=== PATIENT | female | born 1995 | race Caucasian/White ===

== ENCOUNTER 2016-09-15 14:11 | Emergency (ER) | payer MEDICAID, OTHER ==
[~2016-09-15] VITALS: Ht 154.9 cm; Wt 56.0 kg
[2016-09-15] MEDS ORDERED: SODIUM CHLORIDE 0.9% 1,000 ML IV ONE (15:57)
[2016-09-15] MEDS ORDERED: ACETAMINOPHEN 500MG TABLET PO ONE (16:00)
[2016-09-15 16:29] LABS: CLARITY URINE CLEAR (CLEAR); COLOR URINE YELLOW (YELLOW); GLUCOSE URINE NEGATIVE (NEGATIVE); KETONES URINE NEGATIVE (NEGATIVE); LEUKOCYTE ESTERASE URINE NEGATIVE (NEGATIVE); NITRITE URINE NEGATIVE (NEGATIVE); OCCULT BLOOD URINE NEGATIVE (NEGATIVE); PROTEIN URINE NEGATIVE (NEGATIVE); SPECIFIC GRAVITY URINE 1.004 (1.005-1.030); UROBILINOGEN URINE 0.2 E.U./dL (0.2-1.0)
[2016-09-15 16:40] LABS: HEMATOCRIT. 41.4 % (36.0-48.0); HEMOGLOBIN. 13.5 g/dL (12.0-16.0); MEAN CORPUSCULAR HEMOGLOBIN 29.5 pg (28.0-32.0); MEAN CORPUSCULAR HGB CONC 32.6 g/dL (31.0-37.0); MEAN CORPUSCULAR VOLUME 90.4 fL (81.0-99.0); MEAN PLATELET VOLUME 11.2 fl (7.4-10.4); PLATELET 186 x1000/uL (130-400); RED BLOOD CELL COUNT 4.58 mill/uL (4.2-5.4); RED CELL DISTRIBUTION WIDTH 13.4 % (11.6-14.6); WHITE BLOOD COUNT 10.6 x1000/uL (4.5-11.0)
[2016-09-15 16:43] LABS: DIFFERENTIAL COMMENT 1
[2016-09-15 16:50] LABS: ANION GAP 13; CALCIUM 9.6 mg/dL (8.5-10.1); CARBON DIOXIDE 26 mEq/L (21-32); CHLORIDE 104 mEq/L (98-107); INDEX HEMOLYSI 4 (1-3); INDEX ICTERIC 1 (1-4); INDEX LIPEMIC 1 (1-3); UREA NITROGEN BLOOD 7 mg/dL (7-21); eGFR > 60 mL/min (>60)
[2016-09-15 17:05] LABS: PLATELET ESTIMATE NORMAL
[2016-09-15 17:06] LABS: HYPOCHROMASIA 1+
[2016-09-15 17:30] VITALS: BP 118/68
== END 2016-09-15 18:10 | disposition home or self-care (01) ==
LOC: ER 14:12
DX: N39.0 Urinary tract infection, site not specified (principal); R19.7 Diarrhea, unspecified
CPT/HCPCS: 36415; 80048; 81003; 81025; 85025; 96360; 99284; J7030; Z7610

== ENCOUNTER 2017-09-23 13:31 | Observation (INO) | payer MEDICAID, OTHER ==
[~2017-09-23] VITALS: Ht 157.5 cm; Wt 76.2 kg
[2017-09-23] MEDS ORDERED: PNV1TABL76 PO (14:51)
[2017-09-23] MEDS ORDERED: LACTATED RINGERS 1,000 ML IV SCH (15:00)
[2017-09-23] MEDS ORDERED: ACETAMINOPHEN 500MG TABLET PO ONE (15:15)
== END 2017-09-23 17:25 | disposition home or self-care (01) ==
LOC: L&D 13:31
PROVIDERS: ADMIT Obstetrics & Gynecology; ATTEND Obstetrics & Gynecology
DX: O26.893 Other specified pregnancy related conditions, third trimester (principal); R10.31 Right lower quadrant pain; Z3A.32 32 weeks gestation of pregnancy
CPT/HCPCS: 76805; 76818; 96360; 96361; 99281; G0378; J7120

== ENCOUNTER 2017-11-21 02:32 | Inpatient (IN) | payer MEDICAID ==
[~2017-11-21] VITALS: Ht 157.5 cm; Wt 82.6 kg
[~2017-11-21 02:32] MED LIST: PNV1TABL76 PO
[2017-11-21] MEDS ORDERED: CARBOPROST TROMETHAMINE 250 MCG/ML AMPUL IM PRN (03:45)
[2017-11-21] MEDS ORDERED: DEXT 5%/LR + PITOCIN 20UNITS/L 1,000 ML IV SCH ×2 (03:45→20:28)
[2017-11-21] MEDS ORDERED: METHYLERGONOVINE MALEATE 0.2 MG/ML IM PRN ×2 (03:45→20:30)
[2017-11-21] MEDS ORDERED: LIDOCAINE HCL/PF 1% 10 MG/ML 30ML VIAL INFIL SCH (03:45)
[2017-11-21] MEDS ORDERED: MISOPROSTOL 200MCG TABLET VG SCH (03:45)
[2017-11-21 04:26] LABS: BASOPHILS % 0.4 % (0.0-2.0); EOSINOPHILS % 0.6 % (0.0-5.0); LYMPHOCYTES % 13.7 % (20.0-50.0); MEAN CORPUSCULAR HEMOGLOBIN 29.9 pg (28.0-32.0); MEAN CORPUSCULAR VOLUME 89.6 fL (81.0-99.0); MEAN PLATELET VOLUME 11.6 fl (7.4-10.4); MONOCYTES % 7.4 % (2.0-8.0); NEUTROPHILS % 77.9 % (40.0-76.0); PLATELET 154 x1000/uL (130-400); RED BLOOD CELL COUNT 4.35 mill/uL (4.2-5.4); RED CELL DISTRIBUTION WIDTH 15.2 % (11.6-14.6)
[2017-11-21] MEDS: BUTORPHANOL TARTRATE 2 MG/ML VIAL IV PRN ×4 (04:28→15:59)
[2017-11-21] MEDS: LACTATED RINGERS 1,000 ML IV SCH ×3 (04:33→18:38)
[2017-11-21 04:36] LABS: INR 0.9; PROTHROMBIN TIME 9.7 sec (9.4-11.6)
[2017-11-21 04:41] LABS: CLARITY URINE CLEAR (CLEAR); COLOR URINE YELLOW (YELLOW); KETONES URINE NEGATIVE (NEGATIVE); LEUKOCYTE ESTERASE URINE NEGATIVE (NEGATIVE); NITRITE URINE NEGATIVE (NEGATIVE); OCCULT BLOOD URINE TRACE (NEGATIVE); PROTEIN URINE NEGATIVE (NEGATIVE); SPECIFIC GRAVITY URINE 1.008 (1.005-1.030)
[2017-11-21 05:00] LABS: CANNABINOID URINE SCREEN NEGATIVE (NEGATIVE)
[2017-11-21 05:01] LABS: *AMPHETAMINES SCREEN URINE NEGATIVE (NEGATIVE); *BARBITURATES SCREEN URINE NEGATIVE (NEGATIVE); *BENZODIAZEPINES SCREEN URINE NEGATIVE (NEGATIVE); *COCAINE SCREEN URINE NEGATIVE (NEGATIVE); OPIATES URINE SCREEN NEGATIVE (NEGATIVE); PHENCYCLIDINE URINE SCREEN NEGATIVE (NEGATIVE)
[2017-11-21 05:04] LABS: METHADONE URINE SCREEN NEGATIVE (NEGATIVE)
[2017-11-21 11:50] LABS: HEPATITIS B SURFACE ANTIGEN NEGATIVE; RUBELLA IGG 255.5 IU/mL (4.99-10)
[2017-11-21] MEDS ORDERED: IBUPROFEN 400MG TABLET PO PRN (20:30)
[2017-11-21] MEDS ORDERED: IBUPROFEN 800MG TABLET PO PRN (20:30)
[2017-11-21] MEDS ORDERED: RHO(D) IMMUNE GLOBULIN 300 MCG/SYR IM PRN (20:30)
[2017-11-21] MEDS ORDERED: LANOLIN OINT 0.25 GM TUBE TOP PRN (20:30)
[2017-11-21 22:25] VITALS: BP 106/48
[2017-11-21 23:00] VITALS: BP 108/62
[2017-11-22 06:58] LABS: BASOPHILS % 0.1 % (0.0-2.0); EOSINOPHILS % 0.2 % (0.0-5.0); HEMATOCRIT. 32.6 % (36.0-48.0); HEMOGLOBIN. 10.8 g/dL (12.0-16.0); LYMPHOCYTES % 11.3 % (20.0-50.0); MEAN CORPUSCULAR HEMOGLOBIN 29.8 pg (28.0-32.0); MEAN CORPUSCULAR VOLUME 89.7 fL (81.0-99.0); MEAN PLATELET VOLUME 11.6 fl (7.4-10.4); MONOCYTES % 9.9 % (2.0-8.0); NEUTROPHILS % 78.5 % (40.0-76.0); PLATELET 145 x1000/uL (130-400); RED BLOOD CELL COUNT 3.64 mill/uL (4.2-5.4); RED CELL DISTRIBUTION WIDTH 15.3 % (11.6-14.6)
[2017-11-22 07:31] VITALS: BP 100/50
[2017-11-22] MEDS: PRENATAL VIT/FE FUMARATE/FA TABLET PO SCH (08:35)
[2017-11-22 16:06] VITALS: BP 99/50
[2017-11-22 22:00] VITALS: BP 105/61
[2017-11-23 06:00] VITALS: BP 103/60
[2017-11-23 08:00] VITALS: BP 90/52
[2017-11-23] MEDS: PRENATAL VIT/FE FUMARATE/FA TABLET PO SCH (09:09)
[2017-11-23 12:31] VITALS: BP 90/52
== END 2017-11-23 13:40 | disposition home or self-care (01) | DRG 560 ==
LOC: OBSVTOIN 02:32 → L&D 02:32 → 7EST PP/OB 22:19
PROVIDERS: ADMIT Obstetrics & Gynecology; ATTEND Obstetrics & Gynecology
PROC: 0W8NXZZ Division of Female Perineum, External Approach (ICD-10-PCS; 2017-11-21)
PROC: 10E0XZZ Delivery of Products of Conception, External Approach (ICD-10-PCS; principal; 2017-11-21 20:06)
DX: O77.0 Labor and delivery complicated by meconium in amniotic fluid (principal); D64.9 Anemia, unspecified; O99.03 Anemia complicating the puerperium; Z37.0 Single live birth; Z3A.39 39 weeks gestation of pregnancy
CPT/HCPCS: 36415; 80305; 81003; 85025; 85610; 85730; 86592; 86703; 86762; 87340; J0595; J2590; J3490; J7120

== ENCOUNTER 2018-11-12 09:47 | Emergency (ER) | payer MEDICAID ==
[~2018-11-12] VITALS: Ht 154.9 cm; Wt 66.0 kg
[2018-11-12 10:17] VITALS: BP 109/64
[2018-11-12] MEDS: IBUPROFEN 600MG TABLET PO ONE (10:17)
[2018-11-12] MEDS: LIDOCAINE HCL 1% 20ML VIAL (Pyxis) INJ INFIL ONE (11:25)
== END 2018-11-12 11:58 | disposition home or self-care (01) ==
LOC: ER 09:47
DX: S60.011A Contusion of right thumb without damage to nail, initial encounter (principal); W23.0XXA Caught, crushed, jammed, or pinched between moving objects, initial encounter; Y93.89 Activity, other specified; Y92.89 Other specified places as the place of occurrence of the external cause; Y99.8 Other external cause status
CPT/HCPCS: 11740; 73140; 81025; 99283

== ENCOUNTER 2020-08-30 18:37 | Emergency (ER) | payer MEDICAID ==
[~2020-08-30] VITALS: Ht 160 cm; Wt 77.0 kg
[2020-08-30 18:40] VITALS: BP 127/74
== END 2020-08-30 23:00 | disposition left against medical advice (07) ==
LOC: ER 18:37
DX: Z53.21 Procedure and treatment not carried out due to patient leaving prior to being seen by health care provider (principal)

== ENCOUNTER 2025-03-30 01:23 | Emergency (ER) | payer OTHER, MEDICAID ==
[~2025-03-30] VITALS: Ht 170.2 cm; Wt 92.0 kg
[2025-03-30 01:31] VITALS: O2SAT 100
[2025-03-30] MEDS ORDERED: KETOROLAC 30MG/ML VIAL IM ONE (03:00)
[2025-03-30] MEDS: LORAZEPAM 1MG TABLET PO ONE (03:20)
[2025-03-30] MEDS: ACETAMINOPHEN 325MG TABLET PO ONE (03:23)
[2025-03-30] MEDS: KETOROLAC 30MG/ML VIAL IM ONE (03:24)
[2025-03-30] MEDS ORDERED: LIDO-53 TP (04:55)
[2025-03-30] MEDS ORDERED: IBUP-2028 MT (04:55)
[2025-03-30] MEDS ORDERED: ACET-2708 MT (04:55)
[2025-03-30 05:56] VITALS: BP 130/78; PULSE 105; RESP 16; TEMP 36.8; O2SAT 100
== END 2025-03-30 06:01 | disposition home or self-care (01) ==
LOC: ER 01:23
DX: S93.491A Sprain of other ligament of right ankle, initial encounter (principal); S93.691A Other sprain of right foot, initial encounter; F41.9 Anxiety disorder, unspecified; Z79.899 Other long term (current) drug therapy; V43.62XA Car passenger injured in collision with other type car in traffic accident, initial encounter; Y92.410 Unspecified street and highway as the place of occurrence of the external cause; Y93.01 Activity, walking, marching and hiking; Y92.89 Other specified places as the place of occurrence of the external cause
CPT/HCPCS: 81025; 73502; 73610; 73630; 70450; 29515; 96372; 99285; J1885; Z7610